=== PATIENT | female | born 1940 | race Caucasian/White ===

== ENCOUNTER → 2016-10-10 | Outpatient (CLI) | payer OTHER ==
[~2016-10-10] MED LIST: ENAL2.5T
[2016-10-10 07:26] LABS: Basophils # (auto) 0 uL; Basophils % (auto) 1.1 % (0.0-2.0); Eosinophils # (auto) 0 uL; Eosinophils % (auto) 0.8 % (0.0-7.0); Hematocrit 36.6 % (36.0-46.0); Hemoglobin 12.3 g/dL (12.2-16.2); Lymphocytes # (auto) 0.8 uL; Lymphocytes % (auto) 20.4 % (10.0-50.0); Mean Corpuscular Hemoglobin 29.5 pg (28.0-32.0); Mean Corpuscular Hgb Conc. 33.6 g/dL (32.0-36.0); Mean Corpuscular Volume 87.7 fL (80.0-100.0); Mean Platelet Volume 6.3 fL (7.4-10.4); Monocytes # (auto) 0.2 uL; Monocytes % (auto) 4.8 % (0.0-12.0); Neutrophils # (auto) 2.7 uL; Neutrophils % (auto) 72.9 % (37.0-80.0); Platelet Count (auto) 324 10^3/uL (140-450); Red Cell Distribution Width 14.2 % (11.6-16.0); White Blood Cell 3.8 10^3/uL (4.4-10.8)
[2016-10-10 07:58] LABS: Albumin 3.9 g/dL (3.4-5.0); BUN/Creatinine Ratio 34.6; Bilirubin, Total 0.6 mg/dL (0.2-1.0); Calcium 8.9 mg/dL (8.5-10.1); Potassium 4.3 mmol/L (3.5-5.1); Total Protein 7.3 g/dL (6.4-8.2)
== END | disposition home or self-care (01) ==
LOC: LAB 06:32
PROVIDERS: ATTEND Internal Medicine
DX: I10 Essential (primary) hypertension (principal); E55.9 Vitamin D deficiency, unspecified; Z00.00 Encounter for general adult medical examination without abnormal findings
CPT/HCPCS: 36415; 80053; 80061; 82306; 84443; 85025

== ENCOUNTER → 2016-10-18 | Outpatient (CLI) | payer OTHER ==
[2016-10-18 13:45] LABS: Urine Bilirubin Negative (Negative); Urine Blood Negative /uL (Negative); Urine Color Yellow (Yellow); Urine Glucose Normal (Normal); Urine Ketone Negative (Negative); Urine Nitrite Negative (Negative); Urine RBC 1 /hpf (0 - 4); Urine Squamous Epithelial Cell FEW /hpf (<5); Urine Urobilinogen Normal (Negative)
== END | disposition home or self-care (01) ==
LOC: LAB 13:31
PROVIDERS: ATTEND Internal Medicine
DX: Z00.00 Encounter for general adult medical examination without abnormal findings (principal); E55.9 Vitamin D deficiency, unspecified; I10 Essential (primary) hypertension
CPT/HCPCS: 81001

== ENCOUNTER 2018-07-30 08:42 | Emergency (ER) | payer OTHER ==
[~2018-07-30] VITALS: Ht 160 cm; Wt 52.2 kg
[~2018-07-30 08:42] MED LIST changes: +AMIT25TA9 PO; +CARV25TA PO; +ENAL5TAB PO
[2018-07-30] MEDS ORDERED: SODIUM CHLORIDE 0.9% 1,000 ML IV ONE (10:20)
[2018-07-30 10:29] LABS: Basophils # (auto) 0 uL; Basophils % (auto) 0.8 % (0.0-2.0); Eosinophils # (auto) 0.1 uL; Eosinophils % (auto) 1.5 % (0.0-7.0); Hematocrit 37.1 % (36.0-46.0); Hemoglobin 12.1 g/dL (12.2-16.2); Lymphocytes # (auto) 0.8 uL; Lymphocytes % (auto) 20.8 % (10.0-50.0); Mean Corpuscular Hemoglobin 29.1 pg (28.0-32.0); Mean Corpuscular Hgb Conc. 32.6 g/dL (32.0-36.0); Mean Corpuscular Volume 89.4 fL (80.0-100.0); Monocytes # (auto) 0.3 uL; Monocytes % (auto) 8.2 % (0.0-12.0); Neutrophils # (auto) 2.6 uL; Neutrophils % (auto) 68.7 % (37.0-80.0); Nucleated Red Blood Cells % 0.1 %; Platelet Count (auto) 220 10^3/uL (140-450); Red Blood Cells 4.14 10^6/uL (4.0-5.20); Red Cell Distribution Width 13.4 % (11.8-14.3); White Blood Cell 3.8 10^3/uL (4.4-10.8)
[2018-07-30] MEDS ORDERED: ASPirin 81 mg TAB PO ONE (10:30)
[2018-07-30 10:49] LABS: INR 1.05 (0.9-1.15); Partial Thromboplastin Time 28.5 sec (23.78-33.04); Prothrombin Time 11.2 sec (9.27-12.13)
[2018-07-30 11:05] LABS: Chloride 109 mmol/L (98-107); Potassium 4.1 mmol/L (3.5-5.1); Sodium 142 mmol/L (136-145)
[2018-07-30 11:14] LABS: Alanine Aminotransferase 33 U/L (13-56); Albumin 3.8 g/dL (3.4-5.0); Alkaline Phosphatase 73 U/L (45-117); Anion Gap 4 (5-15); Aspartate Aminotransferase 25 U/L (15-37); BUN/Creatinine Ratio 28.4; Bilirubin, Total 0.3 mg/dL (0.2-1.0); Blood Urea Nitrogen 23 mg/dL (7-18); Calcium 9.1 mg/dL (8.5-10.1); Carbon Dioxide 29 mmol/L (21-32); GFR African American 88 mL/min; GFR Non-African American 73 mL/min; Glucose 81 mg/dL (74-106); Total Protein 7.2 g/dL (6.4-8.2)
[2018-07-30 11:51] LABS: Urine WBC None Seen /hpf (0 - 5)
[2018-07-30 12:28] LABS: Urine Bacteria NONE SEEN /hpf (None Seen); Urine Blood Negative /uL (Negative); Urine Specific Gravity 1.012 (1.001-1.035)
[2018-07-30] MEDS ORDERED: IOHEXOL 350 MG/ML 100ML IJ ONE (13:05)
[2018-07-30] MEDS ORDERED: CARV6.2551 PO (13:34)
[2018-07-30] MEDS ORDERED: AMIT10TA6 PO (13:34)
[2018-07-30 14:52] VITALS: BP 122/76
== END 2018-07-30 15:43 | disposition home or self-care (01) ==
LOC: MERGE 08:42 → ER 08:42
DX: R07.89 Other chest pain (principal); K59.8 Other specified functional intestinal disorders; K59.01 Slow transit constipation; I50.9 Heart failure, unspecified; Z90.710 Acquired absence of both cervix and uterus; Z91.040 Latex allergy status
CPT/HCPCS: 36415; 71046; 71275; 80053; 81001; 82962; 83735; 83880; 84443; 84484; 85025; 85379; 85610; 85730; 93005; 94761; 96360; 96361; 99284; J7030; Q9967

== ENCOUNTER → 2018-09-11 | Outpatient (CLI) | payer OTHER ==
[~2018-09-11] MED LIST changes: +AMIT10TA6 PO; +CARV6.2551 PO
== END | disposition home or self-care (01) ==
LOC: XYW 10:21
PROVIDERS: ATTEND Internal Medicine
DX: I08.2 Rheumatic disorders of both aortic and tricuspid valves (principal); I11.0 Hypertensive heart disease with heart failure; I50.9 Heart failure, unspecified; I48.91 Unspecified atrial fibrillation
CPT/HCPCS: 93306

== ENCOUNTER → 2018-09-24 | Outpatient (CLI) | payer OTHER ==
[~2018-09-24] VITALS: Ht 160 cm; Wt 52.2 kg
[~2018-09-24] MED LIST changes: +ADENOSINE 44 MG in GIVE UN-DILUTED 0 ML IV STA
== END | disposition home or self-care (01) ==
LOC: XYW 08:03
PROVIDERS: ATTEND Internal Medicine
DX: R07.9 Chest pain, unspecified (principal)
CPT/HCPCS: 78452; 93017; A9500; J0153

== ENCOUNTER → 2019-01-14 | Outpatient (CLI) | payer OTHER ==
[~2019-01-14] MED LIST changes: -ADENOSINE 44 MG in GIVE UN-DILUTED 0 ML IV STA
[2019-01-14 07:33] LABS: Basophils # (auto) 0.1 uL; Basophils % (auto) 1.2 % (0.0-2.0); Eosinophils # (auto) 0.1 uL; Hematocrit 37.2 % (36.0-46.0); Hemoglobin 12.3 g/dL (12.2-16.2); Lymphocytes # (auto) 0.8 uL; Lymphocytes % (auto) 15.4 % (10.0-50.0); Mean Corpuscular Hemoglobin 29.5 pg (28.0-32.0); Mean Corpuscular Volume 89.2 fL (80.0-100.0); Monocytes # (auto) 0.3 uL; Monocytes % (auto) 6.8 % (0.0-12.0); Neutrophils # (auto) 3.8 uL; Neutrophils % (auto) 75.6 % (37.0-80.0); Platelet Count (auto) 220 10^3/uL (140-450); Red Blood Cells 4.17 10^6/uL (4.0-5.20); Red Cell Distribution Width 13.9 % (11.8-14.3)
[2019-01-14 08:36] LABS: Albumin 3.8 g/dL (3.4-5.0); Calcium 9.4 mg/dL (8.5-10.1); Potassium 4.5 mmol/L (3.5-5.1)
[2019-01-14 08:40] LABS: BUN/Creatinine Ratio 34.4; Bilirubin, Total 0.5 mg/dL (0.2-1.0); Total Protein 7.1 g/dL (6.4-8.2)
== END | disposition home or self-care (01) ==
LOC: LAB 06:48
PROVIDERS: ATTEND Physician Assistant
DX: E55.9 Vitamin D deficiency, unspecified (principal); I13.0 Hypertensive heart and chronic kidney disease with heart failure and stage 1 through stage 4 chronic kidney disease, or unspecified chronic kidney disease; I50.32 Chronic diastolic (congestive) heart failure; N18.2 Chronic kidney disease, stage 2 (mild); I42.2 Other hypertrophic cardiomyopathy; E78.00 Pure hypercholesterolemia, unspecified
CPT/HCPCS: 36415; 80053; 80061; 82306; 85025

== ENCOUNTER → 2020-03-23 | Outpatient (CLI) | payer OTHER ==
[~2020-03-23] MED LIST changes: -ENAL2.5T; +ENAL2.5T7; -ENAL5TAB PO; +ENAL5TAB10 PO
== END | disposition home or self-care (01) ==
LOC: XYW 07:28
PROVIDERS: ATTEND Internal Medicine
DX: I10 Essential (primary) hypertension (principal)
CPT/HCPCS: 93306

== ENCOUNTER → 2020-05-09 | Outpatient (CLI) | payer OTHER ==
[2020-05-09 08:09] LABS: Basophils # (auto) 0 10 ^3/uL (0-0.2); Basophils % (auto) 0.9 % (0.0-2.0); Eosinophils # (auto) 0.1 10 ^3/uL (0-0.8); Eosinophils % (auto) 1.2 % (0.0-7.0); Hemoglobin 12.6 g/dL (12.2-16.2); Lymphocytes # (auto) 0.8 10 ^3/uL (0.4-5.4); Lymphocytes % (auto) 16.7 % (10.0-50.0); Mean Corpuscular Hgb Conc. 33.1 g/dL (32.0-36.0); Mean Corpuscular Volume 87.6 fL (80.0-100.0); Monocytes # (auto) 0.3 10 ^3/uL (0-1.3); Monocytes % (auto) 5.8 % (0.0-12.0); Neutrophils # (auto) 3.7 10 ^3/uL (1.6-8.6); Neutrophils % (auto) 75.4 % (37.0-80.0); Nucleated Red Blood Cells % 0.1 %; Platelet Count (auto) 265 10^3/uL (140-450); Red Blood Cells 4.34 10^6/uL (4.0-5.20); Red Cell Distribution Width 13.9 % (11.8-14.3); White Blood Cell 4.8 10^3/uL (4.4-10.8)
[2020-05-09 09:38] LABS: Potassium 4.3 mmol/L (3.5-5.1)
[2020-05-09 09:47] LABS: Albumin 3.8 g/dL (3.4-5.0); BUN/Creatinine Ratio 25.3; Calcium 9.3 mg/dL (8.5-10.1)
[2020-05-09 09:50] LABS: Bilirubin, Total 0.3 mg/dL (0.2-1.0); Total Protein 7.5 g/dL (6.4-8.2)
== END | disposition home or self-care (01) ==
LOC: LAB 07:05
PROVIDERS: ATTEND Physician Assistant
DX: I13.0 Hypertensive heart and chronic kidney disease with heart failure and stage 1 through stage 4 chronic kidney disease, or unspecified chronic kidney disease (principal); I50.32 Chronic diastolic (congestive) heart failure; N18.2 Chronic kidney disease, stage 2 (mild); M81.0 Age-related osteoporosis without current pathological fracture; E55.9 Vitamin D deficiency, unspecified
CPT/HCPCS: 36415; 80053; 80061; 85025

== ENCOUNTER → 2020-07-01 | Outpatient (CLI) | payer OTHER ==
[2020-07-01 08:01] LABS: Basophils # (auto) 0 10 ^3/uL (0-0.2); Basophils % (auto) 1.1 % (0.0-2.0); Eosinophils # (auto) 0.1 10 ^3/uL (0-0.8); Eosinophils % (auto) 1.6 % (0.0-7.0); Hematocrit 36.3 % (36.0-46.0); Hemoglobin 11.9 g/dL (12.2-16.2); Lymphocytes # (auto) 0.6 10 ^3/uL (0.4-5.4); Lymphocytes % (auto) 14.3 % (10.0-50.0); Mean Corpuscular Hemoglobin 28.4 pg (28.0-32.0); Mean Corpuscular Hgb Conc. 32.8 g/dL (32.0-36.0); Mean Corpuscular Volume 86.6 fL (80.0-100.0); Monocytes # (auto) 0.4 10 ^3/uL (0-1.3); Monocytes % (auto) 8.9 % (0.0-12.0); Neutrophils # (auto) 2.9 10 ^3/uL (1.6-8.6); Neutrophils % (auto) 74.1 % (37.0-80.0); Platelet Count (auto) 250 10^3/uL (140-450); Red Blood Cells 4.19 10^6/uL (4.0-5.20); Red Cell Distribution Width 13.8 % (11.8-14.3)
[2020-07-01 08:06] LABS: Urine Blood TRACE /uL (Negative); Urine Specific Gravity 1.011 (1.001-1.035)
[2020-07-01 08:15] LABS: INR 1.05 (0.9-1.15); Partial Thromboplastin Time 27.7 sec (23.0-31.2)
[2020-07-01 08:24] LABS: Potassium 4.6 mmol/L (3.5-5.1)
[2020-07-01 08:33] LABS: Albumin 3.2 g/dL (3.4-5.0); BUN/Creatinine Ratio 21.5; Bilirubin, Total 0.3 mg/dL (0.2-1.0); Calcium 8.9 mg/dL (8.5-10.1); Total Protein 7.2 g/dL (6.4-8.2)
== END | disposition home or self-care (01) ==
LOC: LAB 07:09
PROVIDERS: ATTEND Specialist
DX: Z01.812 Encounter for preprocedural laboratory examination (principal); H25.11 Age-related nuclear cataract, right eye; Z79.01 Long term (current) use of anticoagulants
CPT/HCPCS: 36415; 80053; 81003; 85025; 85610; 85730

== ENCOUNTER → 2020-08-30 | Outpatient (CLI) | payer OTHER ==
[2020-08-30 08:02] LABS: Basophils # (auto) 0 10 ^3/uL (0-0.2); Basophils % (auto) 0.9 % (0.0-2.0); Eosinophils # (auto) 0.1 10 ^3/uL (0-0.8); Eosinophils % (auto) 1.6 % (0.0-7.0); Hemoglobin 12.5 g/dL (12.2-16.2); Lymphocytes # (auto) 0.7 10 ^3/uL (0.4-5.4); Lymphocytes % (auto) 14.9 % (10.0-50.0); Mean Corpuscular Hemoglobin 29.4 pg (28.0-32.0); Mean Corpuscular Hgb Conc. 33.8 g/dL (32.0-36.0); Mean Corpuscular Volume 87.2 fL (80.0-100.0); Monocytes # (auto) 0.4 10 ^3/uL (0-1.3); Monocytes % (auto) 7.1 % (0.0-12.0); Neutrophils # (auto) 3.8 10 ^3/uL (1.6-8.6); Neutrophils % (auto) 75.5 % (37.0-80.0); Nucleated Red Blood Cells % 0.2 %; Platelet Count (auto) 255 10^3/uL (140-450); Red Blood Cells 4.24 10^6/uL (4.0-5.20)
[2020-08-30 08:03] LABS: Urine Blood Negative /uL (Negative)
[2020-08-30 08:24] LABS: Potassium 4.7 mmol/L (3.5-5.1)
[2020-08-30 08:30] LABS: Albumin 3.5 g/dL (3.4-5.0); BUN/Creatinine Ratio 23.5; Bilirubin, Total 0.4 mg/dL (0.2-1.0); Calcium 8.9 mg/dL (8.5-10.1); Total Protein 7.2 g/dL (6.4-8.2)
[2020-08-30 08:48] LABS: INR 1.08 (0.9-1.15); Partial Thromboplastin Time 29.2 sec (23.0-31.2)
== END | disposition home or self-care (01) ==
LOC: LAB 07:08
PROVIDERS: ATTEND Specialist
DX: Z01.812 Encounter for preprocedural laboratory examination (principal); H25.12 Age-related nuclear cataract, left eye; D68.311 Acquired hemophilia; Z79.01 Long term (current) use of anticoagulants
CPT/HCPCS: 36415; 80053; 81003; 85025; 85610; 85730

== ENCOUNTER 2020-09-10 14:42 | Emergency (ER) | payer OTHER ==
[~2020-09-10] VITALS: Ht 160 cm; Wt 52.2 kg
[~2020-09-10 14:42] MED LIST changes: -AMIT10TA6 PO; +AMIT1TAB34 PO; +AMIT25TA12 PO; -AMIT25TA9 PO
[2020-09-10 14:43] VITALS: BP 165/76
== END 2020-09-10 16:51 | disposition left against medical advice (07) ==
LOC: ER 14:43
DX: H57.12 Ocular pain, left eye (principal); Z53.21 Procedure and treatment not carried out due to patient leaving prior to being seen by health care provider

== ENCOUNTER 2022-02-19 05:39 | Emergency (ER) | payer OTHER ==
[~2022-02-19] VITALS: Ht 160 cm; Wt 52.0 kg
[2022-02-19 07:39] LABS: Basophils # (auto) 0 10 ^3/uL (0-0.2); Basophils % (auto) 1.1 % (0.0-2.0); Eosinophils # (auto) 0.1 10 ^3/uL (0-0.8); Eosinophils % (auto) 2.2 % (0.0-7.0); Hematocrit 33.2 % (36.0-46.0); Hemoglobin 10.9 g/dL (12.2-16.2); Lymphocytes # (auto) 0.8 10 ^3/uL (0.4-5.4); Lymphocytes % (auto) 17.9 % (10.0-50.0); Mean Corpuscular Hemoglobin 29.2 pg (28.0-32.0); Mean Corpuscular Hgb Conc. 32.9 g/dL (32.0-36.0); Mean Corpuscular Volume 88.8 fL (80.0-100.0); Monocytes # (auto) 0.3 10 ^3/uL (0-1.3); Monocytes % (auto) 7.3 % (0.0-12.0); Neutrophils # (auto) 3.1 10 ^3/uL (1.6-8.6); Neutrophils % (auto) 71.5 % (37.0-80.0); Nucleated Red Blood Cells % 0.1 %; Red Blood Cells 3.73 10^6/uL (4.0-5.20); Red Cell Distribution Width 14.6 % (11.8-14.3); White Blood Cell 4.3 10^3/uL (4.4-10.8)
[2022-02-19 07:55] LABS: Albumin 3.6 g/dL (3.4-5.0); BUN/Creatinine Ratio 21.5; Calcium 8.8 mg/dL (8.5-10.1); Potassium 4.3 mmol/L (3.5-5.1)
[2022-02-19 07:58] LABS: Bilirubin, Total 0.3 mg/dL (0.2-1.0); Total Protein 6.6 g/dL (6.4-8.2)
[2022-02-19 12:17] VITALS: BP 142/82
== END 2022-02-19 12:19 | disposition home or self-care (01) ==
LOC: ER 05:39
DX: S63.501A Unspecified sprain of right wrist, initial encounter (principal); I11.0 Hypertensive heart disease with heart failure; I50.9 Heart failure, unspecified; Z90.710 Acquired absence of both cervix and uterus; Z91.041 Radiographic dye allergy status; X58.XXXA Exposure to other specified factors, initial encounter; Y93.89 Activity, other specified; Y92.89 Other specified places as the place of occurrence of the external cause; Y99.8 Other external cause status
CPT/HCPCS: 36415; 72125; 73110; 80053; 84484; 85025; 93005

== ENCOUNTER → 2022-05-03 | Outpatient (CLI) | payer OTHER ==
[2022-05-03 06:22] LABS: Basophils # (auto) 0 10 ^3/uL (0-0.2); Basophils % (auto) 1.1 % (0.0-2.0); Eosinophils # (auto) 0.1 10 ^3/uL (0-0.8); Eosinophils % (auto) 2.4 % (0.0-7.0); Hematocrit 35.6 % (36.0-46.0); Hemoglobin 12.1 g/dL (12.2-16.2); Lymphocytes # (auto) 0.9 10 ^3/uL (0.4-5.4); Lymphocytes % (auto) 24.1 % (10.0-50.0); Mean Corpuscular Hemoglobin 30.1 pg (28.0-32.0); Mean Corpuscular Hgb Conc. 33.9 g/dL (32.0-36.0); Mean Corpuscular Volume 88.6 fL (80.0-100.0); Monocytes # (auto) 0.3 10 ^3/uL (0-1.3); Monocytes % (auto) 6.9 % (0.0-12.0); Neutrophils # (auto) 2.5 10 ^3/uL (1.6-8.6); Neutrophils % (auto) 65.5 % (37.0-80.0); Nucleated Red Blood Cells % 0.1 %; Red Blood Cells 4.02 10^6/uL (4.0-5.20); Red Cell Distribution Width 13.5 % (11.8-14.3); White Blood Cell 3.7 10^3/uL (4.4-10.8)
[2022-05-03 07:01] LABS: Albumin 3.8 g/dL (3.4-5.0); Calcium 9.3 mg/dL (8.5-10.1)
[2022-05-03 07:07] LABS: BUN/Creatinine Ratio 28.3; Bilirubin, Total 0.7 mg/dL (0.2-1.0)
== END | disposition home or self-care (01) ==
LOC: LAB 06:05
PROVIDERS: ATTEND Nurse Practitioner Family
DX: Z00.00 Encounter for general adult medical examination without abnormal findings (principal); E78.5 Hyperlipidemia, unspecified; I10 Essential (primary) hypertension; F33.9 Major depressive disorder, recurrent, unspecified
CPT/HCPCS: 36415; 80053; 80061; 84443; 85025

== ENCOUNTER 2022-12-13 03:06 | Inpatient (IN) | payer OTHER ==
[~2022-12-13] VITALS: Ht 157.5 cm; Wt 98.0 kg
[~2022-12-13 03:06] MED LIST changes: +AMIT10TA12 PO; -AMIT1TAB34 PO; -AMIT25TA12 PO; +AMIT25TA20 PO; +ENAL1TAB42; -ENAL2.5T7; -ENAL5TAB10 PO; +ENAL5TAB22 PO
[2022-12-13 03:40] LABS: Basophils # (auto) 0.1 10 ^3/uL (0-0.2); Basophils % (auto) 1.4 % (0.0-2.0); Eosinophils # (auto) 0.1 10 ^3/uL (0-0.8); Hematocrit 36.1 % (36.0-46.0); Lymphocytes # (auto) 0.9 10 ^3/uL (0.4-5.4); Lymphocytes % (auto) 19.5 % (10.0-50.0); Mean Corpuscular Hemoglobin 29.5 pg (28.0-32.0); Mean Corpuscular Hgb Conc. 33.1 g/dL (32.0-36.0); Mean Corpuscular Volume 89.1 fL (80.0-100.0); Monocytes # (auto) 0.4 10 ^3/uL (0-1.3); Monocytes % (auto) 8.8 % (0.0-12.0); Neutrophils % (auto) 67.3 % (37.0-80.0); Nucleated Red Blood Cells % 0.2 %; Red Blood Cells 4.06 10^6/uL (4.0-5.20); White Blood Cell 4.4 10^3/uL (4.4-10.8)
[2022-12-13 03:45] VITALS: PULSE 59; RESP 16; O2SAT 96
[2022-12-13 04:03] LABS: Urine Bacteria FEW /hpf (None Seen); Urine Blood Negative /uL (Negative); Urine Clarity HAZY (Clear); Urine Color Yellow (Yellow); Urine Protein, UAD TRACE (Negative); Urine Specific Gravity 1.013 (1.001-1.035); Urine Urobilinogen Normal (Negative); Urine WBC 25 /hpf (0 - 5); Urine pH 8.5 (5.0-8.0)
[2022-12-13 04:04] LABS: Albumin 3.3 g/dL (3.4-5.0); Magnesium 2.7 mg/dL (1.6-2.6); Potassium 4.7 mmol/L (3.5-5.1)
[2022-12-13 04:08] LABS: BUN/Creatinine Ratio 13.4 (10.0-20.0); Bilirubin, Total 0.3 mg/dL (0.2-1.0)
[2022-12-13] MEDS ORDERED: SODIUM CHLORIDE 0.9% 500 ML IV ONE (05:15)
[2022-12-13] MEDS ORDERED: cefTRIAXone 1GM/50ML D5W 50 ML IV ONE (05:15)
[2022-12-13 08:00] VITALS: PULSE 63; RESP 17; O2SAT 95
[2022-12-13] MEDS ORDERED: ASPirin 325 MG TAB PO SCH (09:30)
[2022-12-13] MEDS ORDERED: hydrALAZINE HCL 20 MG/ML VL IV PRN (10:00)
[2022-12-13] MEDS ORDERED: ALBUTEROL SULF 2.5 MG/0.5ML(0.5%) NEB SOLN NEB PRN (10:00)
[2022-12-13] MEDS ORDERED: IPRATROPIUM BROM 0.5 MG/2.5ML INH SOL NEB PRN (10:00)
[2022-12-13] MEDS ORDERED: ENOXAPARIN SOD 40 MG/0.4 ML SYRINGE SC SCH (10:00)
[2022-12-13 10:17] LABS: Magnesium 2.6 mg/dL (1.6-2.6); Phosphorus 3.5 mg/dL (2.5-4.90)
[2022-12-13 10:30] VITALS: BP 135/69; PULSE 65; RESP 16; TEMP 97.8; O2SAT 95
[2022-12-13 11:07] LABS: Magnesium 2.6 mg/dL (1.6-2.6); Phosphorus 3.2 mg/dL (2.5-4.90)
[2022-12-13 16:14] VITALS: PULSE 75; RESP 16; O2SAT 92
[2022-12-13 16:20] VITALS: PULSE 78; RESP 16; O2SAT 93
[2022-12-13] MEDS ORDERED: DexAMETHasone SOD PHOS 10MG/1ML VIAL INJ IV ONE (18:00)
[2022-12-13] MEDS: DexAMETHasone SOD PHOS 4 MG/1ML SDV INJ IV SCH (18:16)
[2022-12-13 19:30] VITALS: PULSE 72; RESP 15; O2SAT 95
[2022-12-13] MEDS ORDERED: LORazepam 2MG/ML-1ML VIAL IV PRN (20:30)
[2022-12-13] MEDS: SODIUM CHLORIDE 0.9% 1,000 ML IV SCH (20:53)
[2022-12-13] MEDS: AMITRIPTYLINE HCL 25 MG TAB PO SCH (22:00)
[2022-12-13] MEDS: CARVEDILOL 12.5 MG TAB PO SCH (22:00)
[2022-12-14] VITALS (10 sets, daily range): BP systolic 79–152; BP diastolic 48–95; PULSE 67–97; RESP 14–18; TEMP 97.4–98.5; O2SAT 93–99
[2022-12-14] MEDS: DexAMETHasone SOD PHOS 4 MG/1ML SDV INJ IV SCH ×2 (00:11→06:05)
[2022-12-14] MEDS ORDERED: AMIT100T6 PO (02:42)
[2022-12-14 06:28] LABS: Basophils # (auto) 0 10 ^3/uL (0-0.2); Basophils % (auto) 0.5 % (0.0-2.0); Eosinophils # (auto) 0 10 ^3/uL (0-0.8); Hematocrit 38.3 % (36.0-46.0); Hemoglobin 12.8 g/dL (12.2-16.2); Lymphocytes # (auto) 0.5 10 ^3/uL (0.4-5.4); Lymphocytes % (auto) 12.6 % (10.0-50.0); Mean Corpuscular Hemoglobin 29.6 pg (28.0-32.0); Mean Corpuscular Hgb Conc. 33.4 g/dL (32.0-36.0); Mean Corpuscular Volume 88.8 fL (80.0-100.0); Monocytes # (auto) 0.1 10 ^3/uL (0-1.3); Monocytes % (auto) 1.3 % (0.0-12.0); Neutrophils # (auto) 3.4 10 ^3/uL (1.6-8.6); Neutrophils % (auto) 85.6 % (37.0-80.0); Nucleated Red Blood Cells % 0.1 %; Red Blood Cells 4.31 10^6/uL (4.0-5.20); White Blood Cell 3.9 10^3/uL (4.4-10.8)
[2022-12-14 06:37] LABS: Albumin 3.3 g/dL (3.4-5.0); Calcium 8.7 mg/dL (8.5-10.1)
[2022-12-14 06:42] LABS: Bilirubin, Total 0.3 mg/dL (0.2-1.0); Total Protein 7.2 g/dL (6.4-8.2)
[2022-12-14 08:06] LABS: RPR Non Reactive (Non Reactive)
[2022-12-14] MEDS: cefTRIAXone 1GM/50ML D5W 50 ML IV SCH (09:52)
[2022-12-14] MEDS: SODIUM CHLORIDE 0.9% 1,000 ML IV SCH ×2 (09:52→23:33)
[2022-12-14] MEDS: CARVEDILOL 12.5 MG TAB PO SCH ×2 (09:53→22:12)
[2022-12-14] MEDS: ASPirin 81 mg TAB PO SCH (09:54)
[2022-12-14] MEDS: ENOXAPARIN SOD 30 MG/0.3 ML SYRINGE SC SCH (09:55)
[2022-12-14] MEDS ORDERED: ENALAPRIL MALEATE 2.5 MG TAB PO SCH (10:00)
[2022-12-14] MEDS ORDERED: PANTOPRAZOLE 40 MG/10 ML VIAL INJ IV SCH (10:00)
[2022-12-14] MEDS ORDERED: DOCUSATE SOD 100 MG CAP PO ONE (10:30)
[2022-12-14] MEDS ORDERED: FLUDROCORTISONE ACETATE 0.1 MG TAB PO ONE (15:30)
[2022-12-14] MEDS: AMITRIPTYLINE HCL 25 MG TAB PO SCH (22:13)
[2022-12-15] VITALS (10 sets, daily range): BP systolic 114–140; BP diastolic 50–76; PULSE 51–75; RESP 10–18; TEMP 97.8–98.4; O2SAT 93–99
[2022-12-15] MEDS: ENOXAPARIN SOD 30 MG/0.3 ML SYRINGE SC SCH (09:21)
[2022-12-15] MEDS: CARVEDILOL 12.5 MG TAB PO SCH ×2 (09:23→22:38)
[2022-12-15] MEDS: FLUDROCORTISONE ACETATE 0.1 MG TAB PO SCH (09:23)
[2022-12-15] MEDS: ASPirin 81 mg TAB PO SCH (09:23)
[2022-12-15] MEDS: SODIUM CHLORIDE 0.9% 1,000 ML IV SCH (09:26)
[2022-12-15] MEDS: cefTRIAXone 1GM/50ML D5W 50 ML IV SCH (09:26)
[2022-12-15] MEDS ORDERED: DOCUSATE SOD 100 MG CAP PO PRN (10:30)
[2022-12-15] MEDS ORDERED: LIDOCAINE 2% (LOCAL ANESTH.) PF 5ml SDV ONE (13:55)
[2022-12-15] MEDS ORDERED: PROPOFOL 10 MG/ML 20 ML IV ONE (13:55)
[2022-12-15] MEDS: NYSTATIN (MOUTH-THROAT) 500,000 UNITS/5 ML SUSP MT SCH ×2 (17:27→22:36)
[2022-12-15] MEDS: SUCRALFATE 1 GM/10 ML ORAL SUSP PO SCH ×2 (17:27→22:36)
[2022-12-15] MEDS: AMITRIPTYLINE HCL 25 MG TAB PO SCH (22:39)
[2022-12-15] MEDS: PANTOPRAZOLE 40 MG/10 ML VIAL INJ IV SCH (22:41)
[2022-12-16] VITALS (7 sets, daily range): BP systolic 0–150; BP diastolic 60–77; PULSE 58–66; RESP 14–18; TEMP 97.9–98.1; O2SAT 94–100
[2022-12-16 00:06] LABS: Urine Bacteria NONE SEEN /hpf (None Seen); Urine WBC 1 /hpf (0 - 5)
[2022-12-16 00:10] LABS: Urine Clarity CLEAR (Clear); Urine Color Straw (Yellow); Urine Protein, UAD TRACE (Negative); Urine Specific Gravity 1.015 (1.001-1.035); Urine Urobilinogen Normal (Negative)
[2022-12-16 00:11] LABS: Urine Blood Negative /uL (Negative)
[2022-12-16] MEDS: SODIUM CHLORIDE 0.9% 1,000 ML IV SCH (01:09)
[2022-12-16] MEDS: SUCRALFATE 1 GM/10 ML ORAL SUSP PO SCH ×4 (06:41→21:51)
[2022-12-16] MEDS: NYSTATIN (MOUTH-THROAT) 500,000 UNITS/5 ML SUSP MT SCH ×4 (06:41→21:51)
[2022-12-16 07:07] LABS: Basophils # (auto) 0.1 10 ^3/uL (0-0.2); Basophils % (auto) 1.1 % (0.0-2.0); Eosinophils # (auto) 0.2 10 ^3/uL (0-0.8); Eosinophils % (auto) 3.2 % (0.0-7.0); Hematocrit 36.5 % (36.0-46.0); Hemoglobin 12.2 g/dL (12.2-16.2); Lymphocytes # (auto) 0.7 10 ^3/uL (0.4-5.4); Lymphocytes % (auto) 14.2 % (10.0-50.0); Mean Corpuscular Hemoglobin 29.6 pg (28.0-32.0); Mean Corpuscular Hgb Conc. 33.3 g/dL (32.0-36.0); Mean Corpuscular Volume 88.9 fL (80.0-100.0); Monocytes # (auto) 0.4 10 ^3/uL (0-1.3); Monocytes % (auto) 7.7 % (0.0-12.0); Neutrophils # (auto) 3.8 10 ^3/uL (1.6-8.6); Neutrophils % (auto) 73.8 % (37.0-80.0); Nucleated Red Blood Cells % 0.1 %; Red Blood Cells 4.11 10^6/uL (4.0-5.20); White Blood Cell 5.2 10^3/uL (4.4-10.8)
[2022-12-16 07:24] LABS: Albumin 3.3 g/dL (3.4-5.0); Calcium 8.2 mg/dL (8.5-10.1); Potassium 3.4 mmol/L (3.5-5.1)
[2022-12-16 07:27] LABS: BUN/Creatinine Ratio 17.1 (10.0-20.0); Bilirubin, Total 0.3 mg/dL (0.2-1.0); Total Protein 6.7 g/dL (6.4-8.2)
[2022-12-16] MEDS: cefTRIAXone 1GM/50ML D5W 50 ML IV SCH (09:00)
[2022-12-16] MEDS ORDERED: POTASSIUM EFFERVESENT TAB 25 MEQ PO ONE (09:00)
[2022-12-16] MEDS: FLUDROCORTISONE ACETATE 0.1 MG TAB PO SCH (10:00)
[2022-12-16] MEDS: PANTOPRAZOLE 40 MG/10 ML VIAL INJ IV SCH ×2 (10:00→21:51)
[2022-12-16] MEDS: ASPirin 81 mg TAB PO SCH (10:00)
[2022-12-16] MEDS: CARVEDILOL 12.5 MG TAB PO SCH ×2 (10:00→21:52)
[2022-12-16] MEDS: AMITRIPTYLINE HCL 25 MG TAB PO SCH (21:52)
[2022-12-17] VITALS (9 sets, daily range): BP systolic 89–150; BP diastolic 51–76; PULSE 56–82; RESP 14–20; TEMP 97.4–98.1; O2SAT 93–98
[2022-12-17] MEDS: NYSTATIN (MOUTH-THROAT) 500,000 UNITS/5 ML SUSP MT SCH ×4 (06:05→22:41)
[2022-12-17] MEDS: SUCRALFATE 1 GM/10 ML ORAL SUSP PO SCH ×4 (06:05→22:41)
[2022-12-17 06:25] LABS: Basophils # (auto) 0 10 ^3/uL (0-0.2); Basophils % (auto) 1.1 % (0.0-2.0); Eosinophils # (auto) 0.2 10 ^3/uL (0-0.8); Eosinophils % (auto) 4.8 % (0.0-7.0); Lymphocytes # (auto) 0.7 10 ^3/uL (0.4-5.4); Lymphocytes % (auto) 17.6 % (10.0-50.0); Mean Corpuscular Hemoglobin 29.8 pg (28.0-32.0); Mean Corpuscular Hgb Conc. 33.4 g/dL (32.0-36.0); Mean Corpuscular Volume 89.2 fL (80.0-100.0); Monocytes # (auto) 0.4 10 ^3/uL (0-1.3); Monocytes % (auto) 9.5 % (0.0-12.0); Neutrophils # (auto) 2.6 10 ^3/uL (1.6-8.6); Red Cell Distribution Width 13.8 % (11.8-14.3); White Blood Cell 3.9 10^3/uL (4.4-10.8)
[2022-12-17 06:26] LABS: Calcium 8.2 mg/dL (8.5-10.1); Potassium 3.3 mmol/L (3.5-5.1)
[2022-12-17 06:30] LABS: BUN/Creatinine Ratio 16.7 (10.0-20.0)
[2022-12-17] MEDS ORDERED: POTASSIUM EFFERVESENT TAB 25 MEQ PO ONE (08:00)
[2022-12-17] MEDS: cefTRIAXone 1GM/50ML D5W 50 ML IV SCH (09:17)
[2022-12-17] MEDS: PANTOPRAZOLE 40 MG/10 ML VIAL INJ IV SCH (09:17)
[2022-12-17] MEDS: FLUDROCORTISONE ACETATE 0.1 MG TAB PO SCH (09:18)
[2022-12-17] MEDS: CARVEDILOL 12.5 MG TAB PO SCH ×2 (09:18→22:42)
[2022-12-17] MEDS: ASPirin 81 mg TAB PO SCH (09:18)
[2022-12-17] MEDS: AMITRIPTYLINE HCL 25 MG TAB PO SCH (22:41)
[2022-12-17] MEDS: POTASSIUM EFFERVESENT TAB 25 MEQ PO SCH (22:42)
[2022-12-18 05:00] VITALS: BP_SYST 145; BP_SYST 150; BP_SYST 156; BP_DIAS 70; BP_DIAS 72; BP_DIAS 74; PULSE 66; RESP 14; TEMP 98; O2SAT 96
[2022-12-18] MEDS: NYSTATIN (MOUTH-THROAT) 500,000 UNITS/5 ML SUSP MT SCH ×4 (06:44→21:53)
[2022-12-18] MEDS: SUCRALFATE 1 GM/10 ML ORAL SUSP PO SCH ×2 (06:44→11:30)
[2022-12-18 06:57] LABS: Calcium 8.1 mg/dL (8.5-10.1); Potassium 3.6 mmol/L (3.5-5.1)
[2022-12-18 06:59] LABS: BUN/Creatinine Ratio 17.5 (10.0-20.0)
[2022-12-18 07:02] LABS: Basophils # (auto) 0 10 ^3/uL (0-0.2); Basophils % (auto) 1.2 % (0.0-2.0); Eosinophils # (auto) 0.2 10 ^3/uL (0-0.8); Eosinophils % (auto) 5.3 % (0.0-7.0); Lymphocytes # (auto) 0.8 10 ^3/uL (0.4-5.4); Lymphocytes % (auto) 22.2 % (10.0-50.0); Mean Corpuscular Hemoglobin 29.6 pg (28.0-32.0); Mean Corpuscular Hgb Conc. 33.4 g/dL (32.0-36.0); Mean Corpuscular Volume 88.4 fL (80.0-100.0); Monocytes # (auto) 0.3 10 ^3/uL (0-1.3); Neutrophils # (auto) 2.3 10 ^3/uL (1.6-8.6); Neutrophils % (auto) 62.3 % (37.0-80.0); Nucleated Red Blood Cells % 0.2 %; Red Blood Cells 3.73 10^6/uL (4.0-5.20); Red Cell Distribution Width 13.7 % (11.8-14.3); White Blood Cell 3.6 10^3/uL (4.4-10.8)
[2022-12-18 09:00] VITALS: BP_SYST 100; BP_SYST 109; BP_SYST 121; BP_DIAS 56; BP_DIAS 59; BP_DIAS 62; PULSE 66; RESP 18; TEMP 98; O2SAT 98
[2022-12-18] MEDS: CARVEDILOL 12.5 MG TAB PO SCH ×2 (09:47→21:55)
[2022-12-18] MEDS: POTASSIUM EFFERVESENT TAB 25 MEQ PO SCH (09:51)
[2022-12-18 13:00] VITALS: BP_SYST 111; BP_SYST 129; BP_SYST 135; BP_DIAS 59; BP_DIAS 64; BP_DIAS 69; PULSE 61; RESP 18; TEMP 98.4; O2SAT 99
[2022-12-18] MEDS ORDERED: PANTOPRAZOLE 40 MG TAB PO ONE (15:00)
[2022-12-18 17:00] VITALS: BP_SYST 150; BP_SYST 155; BP_SYST 167; BP_DIAS 71; BP_DIAS 74; BP_DIAS 80; PULSE 67; RESP 19; TEMP 98.9; O2SAT 94
[2022-12-18] MEDS ORDERED: ENALAPRIL MALEATE 2.5 MG TAB PO ONE (17:15)
[2022-12-18] MEDS: AMITRIPTYLINE HCL 25 MG TAB PO SCH (21:55)
[2022-12-18 22:00] VITALS: BP 117/65; PULSE 70; RESP 16; TEMP 98; O2SAT 98
[2022-12-19 05:00] VITALS: BP 130/64; PULSE 75; RESP 20; TEMP 98.2; O2SAT 97
[2022-12-19 06:27] LABS: Basophils # (auto) 0.1 10 ^3/uL (0-0.2); Basophils % (auto) 1.4 % (0.0-2.0); Eosinophils # (auto) 0.2 10 ^3/uL (0-0.8); Eosinophils % (auto) 5.8 % (0.0-7.0); Hematocrit 34.1 % (36.0-46.0); Hemoglobin 11.5 g/dL (12.2-16.2); Lymphocytes # (auto) 0.9 10 ^3/uL (0.4-5.4); Mean Corpuscular Hemoglobin 29.8 pg (28.0-32.0); Mean Corpuscular Hgb Conc. 33.8 g/dL (32.0-36.0); Mean Corpuscular Volume 88.3 fL (80.0-100.0); Monocytes # (auto) 0.4 10 ^3/uL (0-1.3); Monocytes % (auto) 9.3 % (0.0-12.0); Neutrophils # (auto) 2.7 10 ^3/uL (1.6-8.6); Neutrophils % (auto) 63.5 % (37.0-80.0); Nucleated Red Blood Cells % 0.1 %; Red Blood Cells 3.86 10^6/uL (4.0-5.20); Red Cell Distribution Width 14.1 % (11.8-14.3); White Blood Cell 4.3 10^3/uL (4.4-10.8)
[2022-12-19] MEDS: NYSTATIN (MOUTH-THROAT) 500,000 UNITS/5 ML SUSP MT SCH ×2 (06:32→12:41)
[2022-12-19 06:43] LABS: Calcium 8.7 mg/dL (8.5-10.1); Potassium 3.6 mmol/L (3.5-5.1)
[2022-12-19 06:45] LABS: BUN/Creatinine Ratio 16.1 (10.0-20.0)
[2022-12-19 08:00] VITALS: BP 131/73; PULSE 75; PULSE 76; RESP 20; TEMP 98.2; O2SAT 97
[2022-12-19 09:00] VITALS: BP 135/65; PULSE 72; RESP 16; TEMP 97.5; O2SAT 99
[2022-12-19] MEDS ORDERED: PANTOPRAZOLE 40 MG TAB PO SCH (10:00)
[2022-12-19] MEDS ORDERED: ENALAPRIL MALEATE 2.5 MG TAB PO SCH (10:00)
[2022-12-19] MEDS ORDERED: PANT40T PO (11:00)
[2022-12-19] MEDS ORDERED: ENAL5TAB22 PO (11:00)
[2022-12-19] MEDS ORDERED: CAR125T PO (11:00)
[2022-12-19] MEDS ORDERED: NYS5LQ MT (11:00)
[2022-12-19] MEDS: CARVEDILOL 12.5 MG TAB PO SCH (11:17)
[2022-12-19 13:00] VITALS: BP 149/64; PULSE 68; RESP 16; TEMP 97.3; O2SAT 95
[2022-12-19 14:08] VITALS: BP 131/73; PULSE 75; TEMP 36.8
== END 2022-12-19 16:45 | disposition home or self-care (01) | DRG 690 ==
LOC: ER 03:06 → TELE 09:37 → TELE-WESTW 23:52 → WEST WING 12-17 12:52
PROVIDERS: ADMIT Internal Medicine; ATTEND Student in an Organized Health Care Education/Training Program
PROC: 0DB68ZX Excision of Stomach, Via Natural or Artificial Opening Endoscopic, Diagnostic (ICD-10-PCS; 2022-12-15)
PROC: 0DB38ZX Excision of Lower Esophagus, Via Natural or Artificial Opening Endoscopic, Diagnostic (ICD-10-PCS; 2022-12-15)
PROC: 0DB98ZX Excision of Duodenum, Via Natural or Artificial Opening Endoscopic, Diagnostic (ICD-10-PCS; principal; 2022-12-15 13:53)
DX: N10 Acute pyelonephritis (principal); K22.10 Ulcer of esophagus without bleeding; D64.9 Anemia, unspecified; E83.41 Hypermagnesemia; F32.A Depression, unspecified; I11.0 Hypertensive heart disease with heart failure; E86.0 Dehydration; R13.10 Dysphagia, unspecified; J44.9 Chronic obstructive pulmonary disease, unspecified; I50.9 Heart failure, unspecified; I95.1 Orthostatic hypotension; K29.70 Gastritis, unspecified, without bleeding; K44.9 Diaphragmatic hernia without obstruction or gangrene; Z80.0 Family history of malignant neoplasm of digestive organs; Z88.8 Allergy status to other drugs, medicaments and biological substances; Z82.49 Family history of ischemic heart disease and other diseases of the circulatory system; Z90.710 Acquired absence of both cervix and uterus; Z74.01 Bed confinement status
CPT/HCPCS: 36415; 70360; 70450; 70551; 71045; 80048; 80053; 81001; 82962; 83735; 83880; 84100; 84439; 84443; 84484; 85025; 86592; 87086; 92610; 93005; 93306; 93886; 94640; 97110; 97116; 97163; 97530; C9113; G0378; J0696; J1100; J2001; J2704

== ENCOUNTER 2022-12-25 04:40 | Inpatient (IN) | payer OTHER ==
[~2022-12-25] VITALS: Ht 160 cm; Wt 52.3 kg
[~2022-12-25 04:40] MED LIST changes: +AMIT100T6 PO; -AMIT10TA12 PO; -AMIT25TA20 PO; +CAR125T PO; -CARV6.2551 PO; -ENAL1TAB42; +NYS5LQ MT; +PANT40T PO
[2022-12-25] MEDS ORDERED: LACTATED RINGER'S 1,000 ML IV ONE (05:15)
[2022-12-25 06:01] LABS: Basophils # (auto) 0.1 10 ^3/uL (0-0.2); Basophils % (auto) 1.3 % (0.0-2.0); Eosinophils # (auto) 0.1 10 ^3/uL (0-0.8); Eosinophils % (auto) 1.9 % (0.0-7.0); Hematocrit 34.1 % (36.0-46.0); Hemoglobin 11.5 g/dL (12.2-16.2); Lymphocytes # (auto) 0.9 10 ^3/uL (0.4-5.4); Lymphocytes % (auto) 17.6 % (10.0-50.0); Mean Corpuscular Hemoglobin 29.9 pg (28.0-32.0); Mean Corpuscular Hgb Conc. 33.8 g/dL (32.0-36.0); Mean Corpuscular Volume 88.6 fL (80.0-100.0); Monocytes # (auto) 0.5 10 ^3/uL (0-1.3); Monocytes % (auto) 9.3 % (0.0-12.0); Neutrophils # (auto) 3.6 10 ^3/uL (1.6-8.6); Neutrophils % (auto) 69.9 % (37.0-80.0); Nucleated Red Blood Cells % 0.1 %; Red Blood Cells 3.85 10^6/uL (4.0-5.20); Red Cell Distribution Width 13.9 % (11.8-14.3); White Blood Cell 5.2 10^3/uL (4.4-10.8)
[2022-12-25 06:08] LABS: Albumin 3.7 g/dL (3.4-5.0); Calcium 8.9 mg/dL (8.7-10.4); Potassium 4.9 mmol/L (3.5-5.1)
[2022-12-25 06:11] LABS: BUN/Creatinine Ratio 14.5 (10.0-20.0)
[2022-12-25 06:14] LABS: Bilirubin, Total 0.4 mg/dL (0.2-1.0); Total Protein 7.1 g/dL (6.4-8.2)
[2022-12-25] MEDS ORDERED: DICYCLOMINE HCL (10MG/ML) 2 ML AMPULE IM ONE (08:15)
[2022-12-25] MEDS ORDERED: PANTOPRAZOLE 40 MG/10 ML VIAL INJ IV ONE (10:45)
[2022-12-25 11:10] VITALS: PULSE 74; RESP 16; O2SAT 96
[2022-12-25] MEDS: VANCOMYCIN HCL 125MG/5ML ORAL SOL PO SCH ×3 (12:43→21:57)
[2022-12-25] MEDS ORDERED: ACETAMINOPHEN 500 MG TAB PO PRN (15:15)
[2022-12-25] MEDS ORDERED: ONDANSETRON HCL 4 MG/2 ML VIAL IV PRN (15:15)
[2022-12-25 21:50] VITALS: PULSE 67; RESP 16; O2SAT 100
[2022-12-25] MEDS: LACTATED RINGER'S 1,000 ML IV SCH (21:56)
[2022-12-25] MEDS ORDERED: AMITRIPTYLINE HCL 25 MG TAB PO SCH (22:00)
[2022-12-26 00:42] LABS: Urine Bacteria NONE SEEN /hpf (None Seen); Urine Blood Negative /uL (Negative); Urine Clarity Clear (Clear); Urine Color Colorless (Yellow); Urine Protein, UAD Negative (Negative); Urine Specific Gravity 1.007 (1.001-1.035); Urine Urobilinogen Normal (Negative); Urine WBC 1 /hpf (0 - 5)
[2022-12-26] MEDS: LACTATED RINGER'S 1,000 ML IV SCH (05:41)
[2022-12-26 06:17] LABS: Basophils # (auto) 0.1 10 ^3/uL (0-0.2); Basophils % (auto) 1.3 % (0.0-2.0); Eosinophils # (auto) 0.1 10 ^3/uL (0-0.8); Hematocrit 32.3 % (36.0-46.0); Lymphocytes # (auto) 0.7 10 ^3/uL (0.4-5.4); Mean Corpuscular Hemoglobin 29.6 pg (28.0-32.0); Mean Corpuscular Hgb Conc. 33.9 g/dL (32.0-36.0); Mean Corpuscular Volume 87.3 fL (80.0-100.0); Monocytes # (auto) 0.4 10 ^3/uL (0-1.3); Monocytes % (auto) 9.3 % (0.0-12.0); Neutrophils # (auto) 2.8 10 ^3/uL (1.6-8.6); Neutrophils % (auto) 70.4 % (37.0-80.0); Nucleated Red Blood Cells % 0.1 %; Red Cell Distribution Width 13.7 % (11.8-14.3)
[2022-12-26] MEDS: VANCOMYCIN HCL 125MG/5ML ORAL SOL PO SCH (06:19)
[2022-12-26 06:32] LABS: Anion Gap 7.2 (5-15); Carbon Dioxide 25.8 mmol/L (20-30); Chloride 103 mmol/L (98-107); Potassium 4.1 mmol/L (3.5-5.1); Sodium 136 mmol/L (136-145)
[2022-12-26 06:33] LABS: Calcium 9.1 mg/dL (8.7-10.4)
[2022-12-26 06:38] LABS: BUN/Creatinine Ratio 10.3 (10.0-20.0); Blood Urea Nitrogen 8 mg/dL (9-23); Glucose 79 mg/dL (74-106)
[2022-12-26] MEDS ORDERED: PANTOPRAZOLE 40 MG/10 ML VIAL INJ IV SCH (10:00)
[2022-12-26 12:40] VITALS: BP 138/81; PULSE 68; RESP 20; TEMP 98; O2SAT 94
[2022-12-26] MEDS ORDERED: MECLIZINE HCL 25 MG TAB PO ONE (14:00)
== END 2022-12-26 16:13 | disposition home or self-care (01) | DRG 371 ==
LOC: ER 04:40 → OVERFLOW 15:43 → WEST WING 12-26 10:16
PROVIDERS: ADMIT Internal Medicine; ATTEND Student in an Organized Health Care Education/Training Program
DX: A04.72 Enterocolitis due to Clostridium difficile, not specified as recurrent (principal); N17.0 Acute kidney failure with tubular necrosis; K56.600 Partial intestinal obstruction, unspecified as to cause; K56.7 Ileus, unspecified; I50.22 Chronic systolic (congestive) heart failure; I95.1 Orthostatic hypotension; E86.0 Dehydration; I11.0 Hypertensive heart disease with heart failure; F32.A Depression, unspecified; G47.00 Insomnia, unspecified; K44.9 Diaphragmatic hernia without obstruction or gangrene; Z90.710 Acquired absence of both cervix and uterus
CPT/HCPCS: 36415; 74176; 80048; 80053; 81001; 83690; 85025; 96361; 96374; C9113; G0378

== ENCOUNTER 2023-03-06 13:15 | Day surgery (SDC) | payer OTHER ==
[2023-03-04 14:31] LABS: Basophils # (auto) 0 10 ^3/uL (0-0.2); Basophils % (auto) 0.8 % (0.0-2.0); Eosinophils # (auto) 0.1 10 ^3/uL (0-0.8); Eosinophils % (auto) 2.5 % (0.0-7.0); Hematocrit 35.5 % (36.0-46.0); Hemoglobin 11.7 g/dL (12.2-16.2); Lymphocytes # (auto) 0.9 10 ^3/uL (0.4-5.4); Lymphocytes % (auto) 18.3 % (10.0-50.0); Mean Corpuscular Hemoglobin 29.5 pg (28.0-32.0); Mean Corpuscular Volume 89.3 fL (80.0-100.0); Monocytes # (auto) 0.4 10 ^3/uL (0-1.3); Neutrophils # (auto) 3.3 10 ^3/uL (1.6-8.6); Neutrophils % (auto) 69.4 % (37.0-80.0); Nucleated Red Blood Cells % 0.1 %; Red Blood Cells 3.98 10^6/uL (4.0-5.20); Red Cell Distribution Width 14.9 % (11.8-14.3); White Blood Cell 4.7 10^3/uL (4.4-10.8)
[2023-03-04 14:54] LABS: INR 1.1 (0.9-1.15); Partial Thromboplastin Time 29.5 SEC (24.5-34.5); Prothrombin Time 11.5 sec (9.3-11.8)
[2023-03-04 15:07] LABS: Alanine Aminotransferase 47 U/L (7-40); Albumin 4.5 g/dL (3.2-4.8); Alkaline Phosphatase 73 U/L (46-116); Anion Gap 4 (5-15); Aspartate Aminotransferase 47 U/L (13-40); BUN/Creatinine Ratio 14.7 (10.0-20.0); Bilirubin, Total 0.3 mg/dL (0.2-1.0); Blood Urea Nitrogen 15 mg/dL (9-23); Calcium 9.6 mg/dL (8.7-10.4); Carbon Dioxide 30 mmol/L (20-30); Chloride 101 mmol/L (98-107); Glucose 98 mg/dL (74-106); Potassium 4.3 mmol/L (3.5-5.1); Sodium 135 mmol/L (136-145); Total Protein 7.2 g/dL (5.7-8.2)
[~2023-03-06] VITALS: Ht 160 cm; Wt 52.2 kg
[~2023-03-06 13:15] MED LIST changes: -CARV25TA PO; -ENAL5TAB22 PO; -NYS5LQ MT; -PANT40T PO
[2023-03-06] MEDS ORDERED: MIDAZOLAM HCL 2MG/2ML 2ml VIAL (1mg/ml) ONE (14:12)
[2023-03-06] MEDS ORDERED: fentaNYL CITRATE 100 MCG/2 ML VL ONE (14:12)
[2023-03-06 14:48] VITALS: RESP 15; TEMP 97.9; O2SAT 100
[2023-03-06] MEDS ORDERED: LIDOCAINE 2% (LOCAL ANESTH.) PF 5ml SDV ONE (14:49)
[2023-03-06] MEDS ORDERED: ONDANSETRON HCL 4 MG/2 ML VIAL ONE (14:49)
[2023-03-06] MEDS ORDERED: PROPOFOL 10 MG/ML 20 ML IV ONE (14:49)
[2023-03-06 15:15] VITALS: BP 154/77; PULSE 85; RESP 16; O2SAT 98
== END 2023-03-06 15:30 | disposition home or self-care (01) ==
LOC: GI 13:15
PROVIDERS: ATTEND Internal Medicine Gastroenterology
DX: R10.32 Left lower quadrant pain (principal); Q43.8 Other specified congenital malformations of intestine; K64.0 First degree hemorrhoids; K63.5 Polyp of colon
CPT/HCPCS: 36415; 45380; 80053; 85025; 85610; 85730; J2001; J2250; J2405; J2704; J3010; J7030